=== PATIENT | female | born 1930 | race Caucasian/White ===

== ENCOUNTER 2017-01-20 09:19 | Emergency (ER) | payer MEDICARE ==
[~2017-01-20] VITALS: Ht 165.1 cm; Wt 50.0 kg
[~2017-01-20 09:19] MED LIST: ACCUPRIL20 MG PO; PROZAC 20MG20 MG PO
[2017-01-20 09:21] VITALS: BP 122/50; PULSE 86
[2017-01-20 10:08] LABS: ARTERIAL BLD GAS O2 SATURATION 96.8 % (92-100); ARTERIAL BLD GAS TCO2 CT 13.9; ARTERIAL BLOOD GAS BASE EXCESS -11.1 (-2-2); ARTERIAL BLOOD GAS HCO3 13.1 meq/L (22-26); ARTERIAL BLOOD GAS PHT 7.36 C (7.35-7.45); ARTERIAL BLOOD GAS PO2 115.4 mmHg (80-100); ARTERIAL BLOOD GAS PO2T 115.4 (80-100); ARTERIAL BLOOD GAS pH 7.36 (7.35-7.45); OXYHEMOGLOBIN 95.3 %
[2017-01-20 10:11] LABS: ATS? YES
[2017-01-20] MEDS ORDERED: ACCUPRIL20TAB PO (10:49)
[2017-01-20 10:54] VITALS: TEMP 92.4
[2017-01-20 11:12] LABS: GRAN # 10.1 (1.4-6.5); GRAN % 85.7 % (42.2-75.2); LYMPH # 0.4 (1.2-3.4); LYMPH % 3.6 % (20.0-51.0); MEAN CELL VOLUME 92 fl (80.0-100.0); MEAN CORPUSCULAR HGB CONC 31 g/dl (33.0-37.0); MEAN PLATELET VOLUME 12.8 fl (7.4-10.4); MONO # 1.2 (0.1-0.6); MONO % 10.3 % (1.7-9.3); PLATELET COUNT 130 K/mm3 (130-400); RED BLOOD COUNT 2.34 M/mm3 (4.10-5.30); REDCELL DISTRIBUTION WIDTH-CV 15.9 % (11.5-14.5); WHITE BLOOD COUNT 11.8 K/mm3 (4.8-10.8)
[2017-01-20 11:14] LABS: INR 1.9 (0.8-3.0); PROTHROMBIN TIME 21.4 SECONDS (9.7-12.8)
[2017-01-20 11:16] LABS: HEMATOCRIT 21.6 % (37.0-47.0); HEMOGLOBIN 6.7 g/dl (12.5-16.0); MEAN CORPUSCULAR HEMOGLOBIN 29 pg (27.0-31.0)
[2017-01-20 11:17] LABS: ADJUSTED CALCIUM 9.3 mg/dL (8.4-10.2); ALBUMIN 3.4 gm/dL (3.5-5.0); BILIRUBIN,TOTAL 1.4 mg/dL (0.0-1.0); CALCIUM 8.8 mg/dL (8.4-10.2); CREATININE, serum 1.11 mg/dL (0.52-1.25); POTASSIUM 3.3 mmol/L (3.4-5.0); TOTAL PROTEIN 6.3 gm/dL (6.4-8.2)
[2017-01-20 11:36] LABS: PH 5 (5-8); SQUAMOUS EPITHELIAL 0-2 /hpf; URINE APPEARANCE Hazy; URINE BACTERIA None Seen /hpf; URINE BILIRUBIN Negative (NEGATIVE); URINE BLOOD 2+ (NEGATIVE); URINE COLOR Yellow; URINE GLUCOSE Negative (NEGATIVE); URINE KETONE Trace (NEGATIVE); URINE RBC 0-2 /hpf
[2017-01-20 11:36] LABS: TROPONIN-I 19.2 ng/mL (0.000-0.034)
== END 2017-01-20 14:05 | disposition expired ==
LOC: COL.ER 09:19
PROVIDERS: Family Medicine
DX: I21.3 ST elevation (STEMI) myocardial infarction of unspecified site (principal); I11.0 Hypertensive heart disease with heart failure; A41.9 Sepsis, unspecified organism; I46.2 Cardiac arrest due to underlying cardiac condition; I50.9 Heart failure, unspecified; D64.9 Anemia, unspecified; Z66 Do not resuscitate; F79 Unspecified intellectual disabilities
CPT/HCPCS: J0696; J7030